=== PATIENT | female | born 1990 | race Caucasian/White ===

== ENCOUNTER 2016-08-21 08:17 | Emergency (ER) | payer MEDICAID, OTHER ==
[2016-08-21 08:36] VITALS: BMI 24.5
[2016-08-21] MEDS ORDERED: Tmp-Smz 800 mg-160 mg DS Tab PO STA (09:20)
--- NOTE | 2016-08-21 09:30 | ED PDOC ---
Arrival/HPI - General Chief Complaint: Abnormal Skin Integrity Time Seen by Provider: 08/21/16 09:19 Historian: Patient - History of Present Illness Narrative History of Present Illness (Text): 08/21/16 09:27 26yo female with no PMHx who present to ED with right sided lower back abscess x 2weeks. states the abscess drained after applying warm compress to the area. The area became very hard and painful again 2days ago. Did not take any medication. Denies fever,chills, any other complaint. Past Medical History - Provider Review Nursing Documentation Reviewed: Yes - Reproductive Menopause: No - Psychiatric Hx Depression: No Hx Emotional Abuse: No Hx Physical Abuse: No Hx Substance Use: No - Suicidal Assessment Feels Threatened In Home Enviroment: No Family/Social History - Physician Review Nursing Documentation Reviewed: Yes Family/Social History: Unknown Family HX Smoking Status: Unknown If Ever Smoked Hx Alcohol Use: No Hx Substance Use: No Hx Substance Use Treatment: No Allergies/Home Meds Allergies/Adverse Reactions: Allergies SHELLFISH Allergy (Severe, Uncoded 11/17/11 14:33) ANAPHYLAXIS Review of Systems - Physician Review All systems were reviewed & negative as marked: Yes - Review of Systems Constitutional: Normal Eyes: Normal ENT: Normal Respiratory: Normal Cardiovascular: Normal Gastrointestinal: Normal Genitourinary Female: Normal Musculoskeletal: Normal Skin: Abscess (Back) Neurological: Normal Endocrine: Normal Hemo/Lymphatic: Normal Psychiatric: Normal Physical Exam Vital Signs Reviewed: Yes Vital Signs Temp Pulse Resp BP Pulse Ox 08/21/16 10:06 98.6 F 72 16 126/84 99 08/21/16 09:36 79 18 108/69 100 08/21/16 08:36 98.3 F 82 18 106/67 100 Temperature: Afebrile Blood Pressure: Normal Pulse: Regular Respiratory Rate: Normal Appearance: Positive for: Well-Appearing, Non-Toxic, Comfortable Pain Distress: None Mental Status: Positive for: Alert and Oriented X 3 - Systems Exam Head: Present: Atraumatic, Normocephalic Pupils: Present: PERRL Extroacular Muscles: Present: EOMI Conjunctiva: Present: Normal Mouth: Present: Moist Mucous Membranes Neck: Present: Normal Range of Motion Respiratory/Chest: Present: Clear to Auscultation, Good Air Exchange. No: Respiratory Distress, Accessory Muscle Use Cardiovascular: Present: Regular Rate and Rhythm, Normal S1, S2. No: Murmurs Abdomen: Present: Normal Bowel Sounds. No: Tenderness, Distention, Peritoneal Signs Back: Present: Normal Inspection Upper Extremity: Present: Normal Inspection. No: Cyanosis, Edema Lower Extremity: Present: Normal Inspection. No: Edema Neurological: Present: GCS=15, CN II-XII Intact, Speech Normal Skin: Present: Warm, Dry, Normal Color, Abscess (Apprixmately 2 x 2cm area of induration noted with central fibrous tissue noted on right sided lower back. TTP. No erythema. No crepitus.). No: Rashes Psychiatric: Present: Alert, Oriented x 3, Normal Insight, Normal Concentration Medical Decision Making ED Course and Treatment: 08/21/16 14:46 PT presented to ED for stated history. Afebrile and hemodynmaiclly stable. Abscess appeared indurated. Pt advised to apply warm compress to area multiple times for 15min. To return to ED when fluctuant for I&D. DC shruthi with Bactrim DS and Keflex. Referred to her PMD. TRT ED for any new or worsening symptoms. - Medication Orders Current Medication Orders: Discontinued Medications Cephalexin Monohydrate (Keflex) 500 mg PO STAT STA PRN Reason: Protocol Stop: 08/21/16 09:21 Last Admin: 08/21/16 09:42 Dose: 500 mg Tramadol HCl (Ultram) 50 mg PO STAT STA Stop: 08/21/16 09:20 Last Admin: 08/21/16 09:42 Dose: 50 mg Trimethoprim/Sulfamethoxazole (Bactrim Ds Tab) 1 tab PO STAT STA PRN Reason: Protocol Stop: 08/21/16 09:21 Last Admin: 08/21/16 09:42 Dose: 1 tab Disposition/Present on Arrival - Present on Arrival Any Indicators Present on Arrival: No History of DVT/PE: No History of Uncontrolled Diabetes: No Urinary Catheter: No History of Decub. Ulcer: No History Surgical Site Infection Following: None - Disposition Have Diagnosis and Disposition been Completed?: Yes Diagnosis: Abscess Disposition: HOME/ ROUTINE Disposition Time: 09:30 Patient Plan: Discharge Condition: STABLE Discharge Instructions (ExitCare): Abscess (ED) Additional Instructions: Apply warm compress to area as directed Follow up with your Doctor Return to ED for any new or worsening symptoms Prescriptions: Cephalexin [Keflex] 500 mg PO TID #21 capsule Sulfamethoxazole/Trimethoprim [Bactrim DS 800 mg-160 mg] 1 tab PO BID #14 tab traMADol [Ultram] 50 mg PO TID #10 tab Referrals: [facility] [place]] - Follow up with primary
[2016-08-21 10:08] VITALS: BP 126/84; PULSE 72; RESP 16; TEMP 98.6; O2SAT 99
== END 2016-08-21 10:06 | disposition home or self-care (01) ==
LOC: ED 08:17
DX: L02.212 Cutaneous abscess of back [any part, except buttock and flank] (principal)